=== PATIENT | male | born 1985 ===

== ENCOUNTER 2018-01-25 07:27 | Emergency (ER) | payer SELFPAY ==
[2018-01-25 07:33] VITALS: RESP 18
[2018-01-25] MEDS ORDERED: Sodium Chloride 0.9% 1,000 ML IV ONE (07:54)
[2018-01-25] MEDS ORDERED: Sodium Chloride 0.9% 1,000 ML ONE (08:04)
--- NOTE | 2018-01-25 08:11 | C.PDOC ---
History Of Present Illness 33 years old male presents to ED for complaints of right sided lower abdominal pain associated with nausea and 2 episodes of vomiting that began today at 6AM. Patient describes pain is constant and radiates to right testicle. Denies diarrhea, fever, chills, dysuria, or prior similar symptoms. Time Seen by Provider: 01/25/18 07:41 Chief Complaint (Nursing): Abdominal Pain History Per: Patient History/Exam Limitations: no limitations Onset/Duration Of Symptoms: Hrs, Persistent Current Symptoms Are (Timing): Still Present Location Of Pain/Discomfort: RLQ Radiation Of Pain To:: Other (Right Testicle ) Quality Of Discomfort: "Pain" Associated Symptoms: Nausea, Vomiting (2 episodes ). denies: Fever, Chills Exacerbating Factors: None Alleviating Factors: None Last Bowel Movement: Today Recent travel outside of the [place]: No Past Medical History Reviewed: Historical Data, Nursing Documentation, Vital Signs Vital Signs: Last Vital Signs Temp 97.9 F 01/25/18 07:30 Pulse 67 01/25/18 07:30 Resp 18 01/25/18 07:30 BP 134/85 01/25/18 07:30 Pulse Ox 98 01/25/18 07:30 - Medical History PMH: No Chronic Diseases Surgical History: No Surg Hx Family History: States: No Known Family Hx - Social History Hx Alcohol Use: No Hx Substance Use: No - Immunization History Hx Tetanus Toxoid Vaccination: No Hx Influenza Vaccination: No Hx Pneumococcal Vaccination: No Review Of Systems Constitutional: Negative for: Fever, Chills Gastrointestinal: Positive for: Nausea, Vomiting (2 episodes ), Abdominal Pain (Right lower abdomen ). Negative for: Diarrhea Genitourinary: Negative for: Dysuria Skin: Negative for: Rash Neurological: Negative for: Weakness, Numbness Physical Exam - Physical Exam Appears: In Acute Distress (Moderate ), Other (Tearful) Skin: Normal Color, Warm, Dry, No Rash Head: Atraumatic, Normacephalic Eye(s): bilateral: Normal Inspection, PERRL, EOMI Oral Mucosa: Moist Neck: Normal ROM, Supple Chest: Symmetrical, No Tenderness Cardiovascular: Rhythm Regular, No Murmur Respiratory: Normal Breath Sounds, No Rales, No Rhonchi, No Wheezing Gastrointestinal/Abdominal: Soft, Tenderness (RLQ and suprapubic ), No Distention, No Guarding, No Rebound Male Genital: Normal Inspection, No Testicular Tenderness, No Testicular Swelling Extremity: Normal ROM Extremity: Bilateral: Atraumatic, Normal Color And Temperature, Normal ROM Pulses: Left Radial: Normal, Right Radial: Normal Neurological/Psych: Oriented x3, Normal Speech Gait: Steady ED Course And Treatment - Laboratory Results Result Diagrams: 01/25/18 08:17 01/25/18 08:17 O2 Sat by Pulse Oximetry: 98 (RA) Pulse Ox Interpretation: Normal - CT Scan/US Abdomen/Pelvis CT Other Rad Studies (CT/US): Read By Radiologist, Radiology Report Reviewed CT/US Interpretation: Date of service: 01/25/2018. PROCEDURE: CT Abdomen and Pelvis without intravenous contrast. HISTORY: Right flank,rlq pain, r/o kidney stone vs appendic. COMPARISON: None. TECHNIQUE: Contiguous helical/transaxial sections of the abdomen pelvis performed without oral or intravenous contrast material. Additional 2D sagittal and coronal reformats generated. Contrast dose: Radiation dose: Total exam DLP = 886.92 mGy-cm. This CT exam was performed using one or more of the following dose reduction techniques: Automated exposure control, adjustment of the mA and/or kV according to patient size, and/or use of iterative reconstruction technique. FINDINGS: LOWER THORAX: Heart size is upper limits of normal/mildly enlarged. No significant pericardial effusion. There is a small hiatal hernia. Mild passive/dependent type atelectasis both lung bases left greater than right no effusion or basilar pneumothorax. LIVER: Unremarkable. No gross lesion or ductal dilatation. GALLBLADDER AND BILE DUCTS: Unremarkable. PANCREAS: Unremarkable. No gross lesion or ductal dilatation. SPLEEN: Spleen is mildly enlarged measuring nearly 14 cm in AP dimension. ADRENALS: Unremarkable. No mass. KIDNEYS AND URETERS: There is a small approximately 5.8 mm calculus within the distal right ureter at the mid to lower pelvis level approximately 2.8 cm above the level of the right UVJ with mild right-sided hydronephrosis. There induration and infiltration changes seen about the right ureter above and and to a slightly lesser degree below this level.. There is mild proximal right ureteral dilatation. VASCULATURE: Unremarkable. No aortic aneurysm. No aortic atherosclerotic calcification or mural plaque present. BOWEL: Evaluation of the bowel is limited due to the lack of oral contrast. Stomach is incompletely distended. Visualized loops small bowel exhibit normal contour and caliber. No evidence of acute mechanical small bowel obstruction. Moderate amount of stool seen within the cecum and at ascending colon. The transverse and descending colon are collapsed which may in part account for slight thick-walled appearance however there appears to be submucosal fat deposition suggesting sequela of chronic inflammation. Rule out the sequela of chronic colitis. APPENDIX: Normal appendix. PERITONEUM: Unremarkable. No free fluid. No free air. Tiny fat containing umbilical hernia. There are also very small of bilateral fat containing inguinal hernias. LYMPH NODES: There are multiple small nonspecific retroperitoneal lymph nodes. BLADDER: Bladder incompletely distended which in part accounts for thick-walled appearance. Muscular hypertrophy may contribute. Correlation with urinalysis recommended exclude cystitis. REPRODUCTIVE: Unremarkable. BONES: No acute fracture. OTHER FINDINGS: None. IMPRESSION: 5.8 mm calculus within the distal right ureter at the mid to lower pelvis level approximately 2.8 cm above the level of the right UVJ with mild right-sided hydronephrosis. There induration and infiltration changes seen about the right ureter above and and to a slightly lesser degree below this level.. There is mild proximal right ureteral dilatation.. Mild splenomegaly. There appears to be submucosal fat deposition within the transverse and descending colon suggesting sequela of chronic inflammation Progress Note: Administered IV Fluids and Toradol. Ordered blood work, Urine Culture, Urinalysis, and CT Abdomen&Pelvis. Disposition Counseled Patient/Family Regarding: Studies Performed, Diagnosis, Need For Followup, Rx Given - Disposition Referrals: Blas Hernandez MD [Staff Provider] - Disposition: HOME/ ROUTINE Disposition Time: 11:10 Condition: STABLE Additional Instructions: FOLLOW UP WITH UROLOGY IN 1-2 DAYS DRINK PLENTY OF WATER USE MEDICATIONS DIRECTED RETURN TO EMERGENCY ROOM IMMEDIATELY IF PAIN WORSENS SEGUIR CON UROLOGA EN 1-2 MAURICIO BEBER ABUNDANTE AGUA UTILICE MEDICAMENTOS JACOB SE DIRIGE VUELVA INMEDIATAMENTE A LA RAI DE EMERGENCIA SI EL DOLOR SE CONVIERTE EN PEOR Prescriptions: Hydrocodone/Acetaminophen [Hydrocodone-Acetamin 5-325 mg] 1 each PO Q6 PRN #15 tablet PRN Reason: PAIN Naproxen [Naprosyn] 1 tab PO BID PRN #25 tab PRN Reason: Pain Tamsulosin [Flomax] 0.4 mg PO DAILY #5 cap Instructions: Renal Colic (DC), Kidney Stones (DC) Forms: [employer] (Djiboutian) Print Language: TAJIK - Clinical Impression Clinical Impression: Right kidney stone - Scribe Statement The provider has reviewed the documentation as recorded by the Scribe Giuliana Mills All medical record entries made by the Scribe were at my direction and personally dictated by me. I have reviewed the chart and agree that the record accurately reflects my personal performance of the history, physical exam, medical decision making, and the department course for this patient. I have also personally directed, reviewed, and agree with the discharge instructions and disposition.
[2018-01-25 08:26] LABS: BASO # 0.1 K/uL (0.0-0.2); BASO % 0.7 % (0.0-2.0); EOS # 0.1 K/uL (0.0-0.7); EOS % 1.2 % (0.0-4.0); HEMOGLOBIN 15.8 g/dL (12.0-18.0); LYMPH # 3.1 K/uL (1.0-4.3); LYMPH % 37.3 % (20.0-40.0); MEAN CELL VOLUME 94.9 fL (80.0-94.0); MEAN CORPUSCULAR HEMOGLOBIN 33.2 pg (27.0-31.0); MEAN PLATELET VOLUME 8.4 fL (7.2-11.7); MONO # 0.6 K/uL (0.0-0.8); MONO % 7.3 % (0.0-10.0); NEUT # 4.4 K/uL (1.8-7.0); NEUT % 53.5 % (50.0-75.0); NRBC % 0.1 % (0.0-2.0); RBC 4.75 Mil/uL (4.40-5.90); RED CELL DISTRIBUTION WIDTH 13.1 % (11.5-14.5); WHITE BLOOD COUNT 8.2 K/uL (4.8-10.8)
[2018-01-25 08:39] LABS: ALB/GLOB RATIO 1.3 (1.0-2.1); ALBUMIN 4.2 g/dL (3.5-5.0); ALT/SGPT 37 U/L (21-72); AST/SGOT 23 U/L (17-59); BLOOD UREA NITROGEN 15 mg/dL (9-20); CALCIUM 8.9 mg/dl (8.6-10.4); GFR NON-AFRICAN AMERICAN > 60; LIPASE 101 U/L (23-300)
[2018-01-25 08:40] LABS: URINE BACTERIA RARE (<OCC); URINE BILIRUBIN NEGATIVE (NEGATIVE); URINE BLOOD NEGATIVE (NEGATIVE); URINE CLARITY Clear (Clear); URINE COLOR Yellow (YELLOW); URINE GLUCOSE (UA) NORMAL (Normal); URINE LEUKOCYTE ESTERASE NEG Leu/uL (Negative); URINE PROTEIN NEGATIVE (NEGATIVE); URINE UROBILINOGEN NORMAL mg/dL (0.2-1.0)
--- NOTE | 2018-01-25 10:16 | CT ---
Date of service: 01/25/2018 PROCEDURE: CT Abdomen and Pelvis without intravenous contrast HISTORY: Right flank,rlq pain, r/o kidney stone vs appendic COMPARISON: None. TECHNIQUE: Contiguous helical/transaxial sections of the abdomen pelvis performed without oral or intravenous contrast material. Additional 2D sagittal and coronal reformats generated. Contrast dose: Radiation dose: Total exam DLP = 886.92 mGy-cm. This CT exam was performed using one or more of the following dose reduction techniques: Automated exposure control, adjustment of the mA and/or kV according to patient size, and/or use of iterative reconstruction technique. FINDINGS: LOWER THORAX: Heart size is upper limits of normal/mildly enlarged. No significant pericardial effusion. There is a small hiatal hernia. Mild passive/dependent type atelectasis both lung bases left greater than right no effusion or basilar pneumothorax. LIVER: Unremarkable. No gross lesion or ductal dilatation. GALLBLADDER AND BILE DUCTS: Unremarkable. PANCREAS: Unremarkable. No gross lesion or ductal dilatation. SPLEEN: Spleen is mildly enlarged measuring nearly 14 cm in AP dimension ADRENALS: Unremarkable. No mass. KIDNEYS AND URETERS: There is a small approximately 5.8 mm calculus within the distal right ureter at the mid to lower pelvis level approximately 2.8 cm above the level of the right UVJ with mild right-sided hydronephrosis. There induration and infiltration changes seen about the right ureter above and and to a slightly lesser degree below this level.. There is mild proximal right ureteral dilatation. VASCULATURE: Unremarkable. No aortic aneurysm. No aortic atherosclerotic calcification or mural plaque present. BOWEL: Evaluation of the bowel is limited due to the lack of oral contrast. Stomach is incompletely distended. Visualized loops small bowel exhibit normal contour and caliber. No evidence of acute mechanical small bowel obstruction. Moderate amount of stool seen within the cecum and at ascending colon. The transverse and descending colon are collapsed which may in part account for slight thick-walled appearance however there appears to be submucosal fat deposition suggesting sequela of chronic inflammation. Rule out the sequela of chronic colitis. APPENDIX: Normal appendix. PERITONEUM: Unremarkable. No free fluid. No free air. Tiny fat containing umbilical hernia. There are also very small of bilateral fat containing inguinal hernias. LYMPH NODES: There are multiple small nonspecific retroperitoneal lymph nodes. BLADDER: Bladder incompletely distended which in part accounts for thick-walled appearance. Muscular hypertrophy may contribute. Correlation with urinalysis recommended exclude cystitis REPRODUCTIVE: Unremarkable. BONES: No acute fracture. OTHER FINDINGS: None. IMPRESSION: 5.8 mm calculus within the distal right ureter at the mid to lower pelvis level approximately 2.8 cm above the level of the right UVJ with mild right-sided hydronephrosis. There induration and infiltration changes seen about the right ureter above and and to a slightly lesser degree below this level.. There is mild proximal right ureteral dilatation.. Mild splenomegaly. There appears to be submucosal fat deposition within the transverse and descending colon suggesting sequela of chronic inflammation
[2018-01-25 11:18] VITALS: BP 124/78; PULSE 73; TEMP 98; O2SAT 100
== END 2018-01-25 11:18 | disposition home or self-care (01) ==
LOC: C.ER 07:27
DX: N13.2 Hydronephrosis with renal and ureteral calculous obstruction (principal)
CPT/HCPCS: 74176; 80053; 81001; 83690; 85025; 87086; 96361; 96374; 99285; J1885; J7030